=== PATIENT | female | born 1970 | race Caucasian/White ===

== ENCOUNTER 2021-10-09 14:07 | Emergency (ER) | payer BC ==
[2021-10-09] MEDS ORDERED: HYDROmorphone 0.5 MG/0.5 ML Syringe IVPUSH ONE (14:21)
[2021-10-09] MEDS ORDERED: ceFAZolin 1 GM in Sodium Chloride 0.9% 50 ML IV ONE (14:35)
[2021-10-09] MEDS ORDERED: HYDROmorphone 1 MG/ML Syringe IVPUSH ONE ×2 (14:57→15:30)
--- NOTE | 2021-10-09 15:10 | EDM.PDOC ---
ED HPI GENERAL MEDICAL PROBLEM - General Chief Complaint: Laceration Stated Complaint: [id number] CUT FINGER Time Seen by Provider: 10/09/21 14:07 Source of Information: Reports: Patient History Limitations: Reports: No Limitations - History of Present Illness INITIAL COMMENTS - FREE TEXT/NARRATIVE: This 51 yo female patient reports to the ED with right hand pain. The patient r eports she was placing new misti when the circular saw caught onto a piece of misti and kicked back into her hand. Onset: Sudden Duration: Minutes: Location: Reports: Upper Extremity, Right Quality: Reports: Ache, Sharp, Stabbing Severity: Severe Improves with: Reports: None Worsens with: Reports: None Context: Reports: Activity Associated Symptoms: Reports: No Other Symptoms - Related Data Allergies Allergy/AdvReac Type Severity Reaction Status Date / Time fire ant Allergy Cannot Verified 10/09/21 14:55 Remember guanfacine Allergy Tachycardia Verified 10/09/21 14:55 ED ROS GENERAL - Review of Systems Review Of Systems: Comprehensive ROS is negative, except as noted in HPI. ED EXAM, SKIN/RASH Exam: See Below Exam Limited By: No Limitations General Appearance: Alert, WD/WN, Moderate Distress Eye Exam: Bilateral Eye: EOMI, Normal Inspection, PERRL Ears: Normal External Exam, Normal Canal, Hearing Grossly Normal, Normal TMs Nose: Normal Inspection, Normal Mucosa, No Blood Throat/Mouth: Normal Inspection, Normal Lips, Normal Teeth, Normal Gums, Normal Oropharynx, Normal Voice, No Airway Compromise Head: Atraumatic, Normocephalic Neck: Normal Inspection, Supple, Non-Tender, Full Range of Motion Respiratory/Chest: No Respiratory Distress, Lungs Clear, Normal Breath Sounds, No Accessory Muscle Use, Chest Non-Tender Cardiovascular: Normal Peripheral Pulses, Regular Rate, Rhythm, No Edema, No Gallop, No JVD, No Murmur, No Rub (Female) Exam: Deferred Rectal (Female) Exam: Deferred Back Exam: Normal Inspection, Full Range of Motion, NT Extremities: Other (The patient has a laceration to the nail bed of her first finger. A laceration to her extensor surface of her 2nd PIP. 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 ) Neurological: Alert, Oriented Psychiatric: Normal Affect, Normal Mood Skin: Warm, Dry Location, Skin: Upper Extremity, Right Associated features: Tenderness Lymphatic: No Adenopathy Course - Orders/Labs/Meds Orders: Active Orders 24 hr Category Date Time Status Hand Comp Min 3V Rt [CR] Urgent Exams 10/09/21 14:10 Ordered ceFAZolin [Ancef] 1 gm Med 10/09/21 14:35 Ordered Sodium Chloride 0.9% [Normal Saline AdvBag] 50 ml IV ONETIME Medication Orders Cefazolin Sodium 1 gm/ Sodium (Chloride) 50 mls @ 100 mls/hr IV ONETIME ONE Stop: 10/09/21 15:04 Last Admin: 10/09/21 14:43 Dose: 100 mls/hr Documented by: SHERRIE Meds: Medications Generic Name Dose Route Start Last Admin Trade Name Freq PRN Reason Stop Dose Admin Cefazolin Sodium 1 gm/ Sodium 50 mls @ 100 mls/hr 10/09/21 14:35 10/09/21 14:43 Chloride IV 10/09/21 15:04 100 mls/hr ONETIME ONE Administration Discontinued Medications Generic Name Dose Route Start Last Admin Trade Name Freq PRN Reason Stop Dose Admin Hydromorphone HCl 0.5 mg 10/09/21 14:21 10/09/21 14:43 Hydromorphone 0.5 Mg/0.5 Ml Syringe IVPUSH 10/09/21 14:22 0.5 mg ONETIME ONE Administration Hydromorphone HCl 1 mg 10/09/21 14:57 Hydromorphone 1 Mg/Ml Syringe IVPUSH 10/09/21 14:58 ONETIME ONE - Re-Assessments/Exams Free Text/Narrative Re-Assessment/Exam: 10/09/21 15:16 Discussed the patient's history and injuries with Dr. Nelson. Dr. Nelson accepted the patient for continued evaluation and management. Departure - Departure Time of Disposition: 15:18 Disposition: DC/Tfer to Acute Hospital 02 Condition: Fair Clinical Impression: Finger amputation, traumatic Qualifiers: Encounter type: initial encounter Qualified Code(s): S68.119A - Complete traumatic metacarpophalangeal amputation of unspecified finger, initial encounter - Discharge Information *PRESCRIPTION DRUG MONITORING PROGRAM REVIEWED*: Not Applicable *COPY OF PRESCRIPTION DRUG MONITORING REPORT IN PATIENT SAHIL: Not Applicable Forms: Interfacility Transfer EMTALA Care Plan Goals: Discussed the history, examination, x-ray results and treatments with Dr. Nelson (Orthopedics). Dr. Nelson accepted the patient for continued evaluation and management at [facility] in [place]. The patient will be transported by [facility]. - My Orders Last 24 Hours: My Active Orders 10/09/21 14:10 Hand Comp Min 3V Rt [CR] Urgent 10/09/21 14:35 ceFAZolin [Ancef] 1 gm Sodium Chloride 0.9% [Normal Saline AdvBag] 50 ml IV ONETIME - Assessment/Plan Last 24 Hours: My Active Orders 10/09/21 14:10 Hand Comp Min 3V Rt [CR] Urgent 10/09/21 14:35 ceFAZolin [Ancef] 1 gm Sodium Chloride 0.9% [Normal Saline AdvBag] 50 ml IV ONETIME
--- NOTE | 2021-10-09 15:50 | CR ---
PROCEDURE INFORMATION: Exam: XR Right Hand Exam date and time: 10/09/2021 2:16 PM Age: 51 years old Clinical indication: Other: Cut fingers TECHNIQUE: Imaging protocol: XR Right hand. Views: 3 or more views. COMPARISON: No relevant prior studies available. FINDINGS: Bones/joints: 3rd finger: Comminuted displaced intra-articular fracture distal aspect of the proximal phalanx extending from the mid shaft. Amputation of the distal phalanx and distal portion of the middle phalanx. Fourth finger: Amputation of the distal phalanx and a large portion of the middle phalanx, especially on the radial aspect. Comminuted displaced intra-articular fracture remaining base of the middle phalanx. Soft tissues: Soft tissue swelling. Density projects in the soft tissues between the proximal 2nd and 3rd metacarpals and could be a displaced fracture fragment from the metacarpals or from the distal phalanges. IMPRESSION: Amputation injury and comminuted fractures of the right 3rd and 4th fingers as described
== END 2021-10-09 16:34 ==
LOC: DL.ED 14:07
DX: S68.622A Partial traumatic transphalangeal amputation of right middle finger, initial encounter (principal); S68.624A Partial traumatic transphalangeal amputation of right ring finger, initial encounter; Z88.8 Allergy status to other drugs, medicaments and biological substances; W31.2XXA Contact with powered woodworking and forming machines, initial encounter
CPT/HCPCS: 73130; 96365; 96375; 96376; 99284; J0690; J1170

== ENCOUNTER → 2022-06-20 | Day surgery (SDC) | payer BC ==
[~2022-06-20] MED LIST: Dextrose 5%-0.45% NaCl 1,000 ML IV SCH; Midazolam 1 MG/ML 2 ML SDV IV ONE; Propofol 200 MG/20 ML SDV IV ONE; Sodium Chloride 0.9% 10 ML Syringe FLUSH PRN; Sodium Chloride 0.9% 10 ML Syringe FLUSH SCH
== END ==
LOC: DL.ENDO 05:55
PROVIDERS: ATTEND Internal Medicine Gastroenterology
DX: Z12.11 Encounter for screening for malignant neoplasm of colon (principal); Z01.812 Encounter for preprocedural laboratory examination; Z20.822 Contact with and (suspected) exposure to COVID-19; Z98.890 Other specified postprocedural states; Z88.8 Allergy status to other drugs, medicaments and biological substances
CPT/HCPCS: 00813; J2250; J2704; J7042; U0002